=== PATIENT | female | born 1985 | race African-American/Black ===

== ENCOUNTER 2019-07-27 18:56 | Emergency (ER) | payer BC ==
[~2019-07-27] VITALS: Ht 157.5 cm; Wt 63.0 kg
[2019-07-27] MEDS ORDERED: SODIUM CHLORIDE 0.9% 1,000 ML IV ONE (20:38)
[2019-07-27] MEDS ORDERED: IBUPROFEN 600MG TABLET PO ONE (20:45)
[2019-07-27 21:06] VITALS: BP 118/78
[2019-07-27 23:46] LABS: BASOPHILS % 0.2 % (0.0-2.0); HEMATOCRIT. 37.9 % (36.0-48.0); HEMOGLOBIN. 12.5 g/dL (12.0-16.0); MEAN PLATELET VOLUME 8.6 fl (7.4-10.4); MONOCYTES % 9.5 % (2.0-8.0); NEUTROPHILS % 79.3 % (40.0-76.0); PLATELET 278 x1000/uL (130-400); RED BLOOD CELL COUNT 4.31 mill/uL (4.2-5.4); RED CELL DISTRIBUTION WIDTH 13.3 % (11.6-14.6)
[2019-07-27 23:58] LABS: CHLORIDE 109 mEq/L (98-107)
== END 2019-07-28 01:33 | disposition home or self-care (01) ==
LOC: ER 18:56
DX: R06.02 Shortness of breath (principal); R07.9 Chest pain, unspecified; R00.0 Tachycardia, unspecified; F12.10 Cannabis abuse, uncomplicated
CPT/HCPCS: 36415; 71045; 80053; 85025; 87420; 87804; 93005; 99285; J7030